=== PATIENT | male | born 1985 | race Caucasian/White ===

== ENCOUNTER → 2022-05-11 11:03 | Outpatient (CLI) | payer OTHER, SELFPAY ==
--- NOTE | ~2022-05-11 | US_ITS ---
EXAMINATION: US retroperitoneal duplex ltd DATE: 05/11/2022 11:40 INDICATION: Diabetes. Hypertension. TECHNIQUE: Multiple grayscale, color Doppler, and pulsed Doppler images of the kidneys and renal edenilson davina were obtained. COMPARISON: None. FINDINGS: The aorta peak systolic velocity is 140 cm/s. The right renal artery peak systolic velocity is 117 cm /s in the proximal segment, 153 cm/s in the mid segment, and 77 cm/s in the distal segment. The left renal artery peak systolic velocity is 109 cm/s in the proximal segment, 123 cm/s in the mid segment, and 91 cm/s in the distal segment. IMPRESSION: 1. No Doppler evidence of renal artery stenosis. Reviewed, dictated and finalized at location A.
== END ==
PROVIDERS: PCP Family Medicine; Visit Provider Family Medicine
DX: R53.83 Other fatigue (principal); R73.03 Prediabetes; I10 Essential (primary) hypertension; E53.8 Deficiency of other specified B group vitamins
CPT/HCPCS: 93976